=== PATIENT | male | born 1950 | race Caucasian/White ===

== ENCOUNTER 2019-09-19 11:31 | Emergency (ER) | payer OTHER ==
[~2019-09-19] VITALS: Ht 190.5 cm; Wt 117.9 kg
[2019-09-19] MEDS ORDERED: ASPI81CH PO (11:47)
[2019-09-19] MEDS ORDERED: BUDE10.22 INH (11:48)
[2019-09-19] MEDS ORDERED: ATOR80 PO (11:48)
[2019-09-19] MEDS ORDERED: Vitamin D2000 UNIT PO (11:48)
[2019-09-19] MEDS ORDERED: FERSU300 PO (11:49)
[2019-09-19] MEDS ORDERED: GABA300 PO (11:50)
[2019-09-19] MEDS ORDERED: FINA5 PO (11:50)
[2019-09-19] MEDS ORDERED: GLIP5 PO (11:51)
[2019-09-19] MEDS ORDERED: Norco 10-325 T1 EACH PO (11:51)
[2019-09-19] MEDS ORDERED: METO25ER PO (11:51)
[2019-09-19] MEDS ORDERED: SENN187 PO (11:52)
[2019-09-19] MEDS ORDERED: POLYETHYLENE G500 G1 PO (11:52)
[2019-09-19] MEDS ORDERED: TAMS.4ER PO (11:53)
== END 2019-09-19 15:43 | disposition home or self-care (01) ==
LOC: ER 11:31
DX: M54.5 Low back pain (principal); G89.29 Other chronic pain; M19.90 Unspecified osteoarthritis, unspecified site; E11.9 Type 2 diabetes mellitus without complications; I10 Essential (primary) hypertension; I25.2 Old myocardial infarction; I25.10 Atherosclerotic heart disease of native coronary artery without angina pectoris; Z79.82 Long term (current) use of aspirin; Z79.899 Other long term (current) drug therapy; Z79.84 Long term (current) use of oral hypoglycemic drugs; W19.XXXA Unspecified fall, initial encounter
CPT/HCPCS: 72100; 99283-25